=== PATIENT | male | born 1935 | race Caucasian/White ===

== ENCOUNTER 2016-09-12 09:01 | Outpatient (CLI) | payer OTHER, MEDICARE ==
--- NOTE | 2016-09-12 10:36 | DIAGNOSTIC IMAGING REPORT ---
PROCEDURE: US BILATERAL CAROTID DOPPLER INDICATION: BILATERAL CAROTID BRUITS TECHNIQUE: Color Doppler duplex imaging of the carotid and vertebral vessels. COMPARISON: Carotid ultrasound 05/08/2015 FINDINGS: Cardiac arrhythmia. Moderate to severe calcified plaque of the left CCA and both bifurcations. Vessels are patent Vertebral System: Antegrade vertebral artery flow bilaterally. Right common carotid artery peak systolic velocity 70 cm/second. Right internal carotid artery peak systolic velocity 245 cm/second. Right external carotid artery peak systolic velocity 236 cm/second. Right bqvigexm-ha-ekbvnt carotid artery ratio 3.5 Right vertebral artery peak systolic velocity 15 cm/second. Left common carotid artery peak systolic velocity 80 cm/second. Left internal carotid artery peak systolic velocity 374 cm/second. Left external carotid artery peak systolic velocity 116 cm/second. Left mlvrvxdk-ly-vlijsz carotid artery ratio 4.6 Left vertebral artery peak systolic velocity 72 cm/second. IMPRESSION: 1. 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 Left ICA 70-79% stenosis, stable 3. Right ICA 50-69% stenosis, stable 4. Right ECA 50-99% stenosis Velocity criteria are extrapolated from diameter data as defined by the Society of Radiologists in Ultrasound Consensus Conference, Radiology 2003; 229; 340-346.
--- NOTE | 2016-09-12 10:36 | DIAGNOSTIC IMAGING REPORT ---
PROCEDURE: US BILATERAL CAROTID DOPPLER INDICATION: BILATERAL CAROTID BRUITS TECHNIQUE: Color Doppler duplex imaging of the carotid and vertebral vessels. COMPARISON: Carotid ultrasound 05/08/2015 FINDINGS: Cardiac arrhythmia. Moderate to severe calcified plaque of the left CCA and both bifurcations. Vessels are patent Vertebral System: Antegrade vertebral artery flow bilaterally. Right common carotid artery peak systolic velocity 70 cm/second. Right internal carotid artery peak systolic velocity 245 cm/second. Right external carotid artery peak systolic velocity 236 cm/second. Right ggkhikmj-cc-kztlmq carotid artery ratio 3.5 Right vertebral artery peak systolic velocity 15 cm/second. Left common carotid artery peak systolic velocity 80 cm/second. Left internal carotid artery peak systolic velocity 374 cm/second. Left external carotid artery peak systolic velocity 116 cm/second. Left rxeqxzly-yx-luuawr carotid artery ratio 4.6 Left vertebral artery peak systolic velocity 72 cm/second. IMPRESSION: 1. 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 Left ICA 70-79% stenosis, stable 3. Right ICA 50-69% stenosis, stable 4. Right ECA 50-99% stenosis Velocity criteria are extrapolated from diameter data as defined by the Society of Radiologists in Ultrasound Consensus Conference, Radiology 2003; 229; 340-346.
== END 2016-09-12 23:00 ==
LOC: US SRH 09:01
DX: I65.23 Occlusion and stenosis of bilateral carotid arteries (principal)